=== PATIENT | female | born 1950 | race Caucasian/White ===

== ENCOUNTER 2018-11-08 16:09 | Emergency (ER) | payer OTHER ==
[2018-11-08 16:09] VITALS: BMI 25.6
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
[2018-11-08] MEDS ORDERED: Naproxen 500 MG TAB PO STA (17:15)
[2018-11-08 17:54] LABS: BASO # 0.1 K/uL (0.0-0.2); BASO % 0.9 % (0.0-2.0); EOS # 0.1 K/uL (0.0-0.7); EOS % 1.3 % (0.0-4.0); HEMOGLOBIN 13.3 g/dL (12.0-16.0); LYMPH # 2.2 K/uL (1.0-4.3); LYMPH % 36.4 % (20.0-40.0); MEAN CELL VOLUME 92.5 fl (81.0-99.0); MEAN CORPUSCULAR HEMOGLOBIN 31.3 pg (27.0-31.0); MEAN CORPUSCULAR HGB CONC 33.9 g/dL (33.0-37.0); MEAN PLATELET VOLUME 9.6 fl (7.2-11.7); MONO # 0.5 K/uL (0.0-0.8); MONO % 8.2 % (0.0-10.0); NEUT # 3.2 K/uL (1.8-7.0); NEUT % 53.2 % (50.0-75.0); NRBC % 0.1 % (0.0-0.0); RBC 4.23 Mil/uL (3.80-5.20); RED CELL DISTRIBUTION WIDTH 13.6 % (11.5-14.5)
[2018-11-08 18:04] LABS: BLOOD UREA NITROGEN 22 mg/dl (7-17); CALCIUM 9.8 mg/dL (8.4-10.2); GFR NON-AFRICAN AMERICAN > 60
[2018-11-08 19:18] VITALS: BP 132/81; PULSE 75; RESP 18; TEMP 98.5; O2SAT 100
--- NOTE | 2018-11-09 07:47 | RAD ---
Date of service: 11/08/2018 PROCEDURE: Cervical Spine Radiographs. HISTORY: Pain. COMPARISON: None available. TECHNIQUE: 3 views obtained. FINDINGS: BONES: Alignment maintained. Accentuated lordotic curvature likely on the basis hyper kyphotic thoracic spinal deformity. No fracture. Dens Intact. DISC SPACES: Normal. SOFT TISSUES: Normal. No prevertebral soft tissue swelling. OTHER FINDINGS: None. IMPRESSION: No definite fracture or spondylolisthesis. Accentuated thoracic curvature noted.
--- NOTE | 2018-11-09 07:48 | RAD ---
Date of service: 11/08/2018 HISTORY: cough COMPARISON: No prior. TECHNIQUE: Chest PA and lateral views FINDINGS: LUNGS: No active pulmonary disease. PLEURA: No significant pleural effusion identified. No pneumothorax apparent. CARDIOVASCULAR: Calcific atherosclerotic changes are seen related to the thoracic aorta. Normal cardiac size. No pulmonary vascular congestion. OSSEOUS STRUCTURES: No significant abnormalities. VISUALIZED UPPER ABDOMEN: Normal. OTHER FINDINGS: None. IMPRESSION: No acute cardiopulmonary disease appreciated.
--- NOTE | 2018-11-09 07:50 | RAD ---
Date of service: 11/08/2018 PROCEDURE: LEFT HIP WITH PELVIS RADIOGRAPHS HISTORY: left hip pain COMPARISON: None available. TECHNIQUE: Two views left hip and a single frontal view of the pelvis have been submitted for interpretation. FINDINGS: No acute fracture dislocation identified at the left hip joint. Degenerative changes are moderate the bilateral hip joints and mild to moderate the bilateral sacroiliac joints. Pelvic ring is intact including pubic symphysis. Pubic bones appear unremarkable bilaterally as well iliac bones. Sacrum is grossly nonfocal. IMPRESSION: Moderate bilateral degenerative joint disease at the hip joints. No acute fracture dislocation left hip joint. Pelvic ring is remarkable for bilateral sacroiliac and hip joint degenerative changes as discussed above.
--- NOTE | 2018-11-09 16:43 | CARD ---
APPROVED REPORT Date of service: 11/08/2018 EKG Measurement Heart [id number] <Conclusion> Sinus bradycardia with sinus arrhythmia Left axis deviation Abnormal ECG
== END 2018-11-08 19:10 | disposition home or self-care (01) ==
LOC: H.ER 16:09
DX: S13.4XXA Sprain of ligaments of cervical spine, initial encounter (principal); R07.89 Other chest pain; M25.552 Pain in left hip; V43.62XA Car passenger injured in collision with other type car in traffic accident, initial encounter; Y92.410 Unspecified street and highway as the place of occurrence of the external cause; E03.9 Hypothyroidism, unspecified; I10 Essential (primary) hypertension; Z88.8 Allergy status to other drugs, medicaments and biological substances